=== PATIENT | male | born 1970 | race Caucasian/White ===

== ENCOUNTER 2017-12-24 12:15 | Emergency (ER) | payer BC ==
[~2017-12-24] VITALS: Ht 185.4 cm; Wt 136.0 kg
[~2017-12-24 12:15] MED LIST: AUGMENTIN875TAB PO; CEPHALEXIN500 MG OR; DOXYCYCL HYC100 MG PO; FLEXERIL PO; FLONASE NASAL50 MCG; GNP IBUPROFEN PO; LORTAB 5 OR; NO HOME MEDS; PENICILLN VK500 MG OR; ULTRAM50 M1 PO
[2017-12-24] MEDS ORDERED: LISINOPRIL20 MG PO (12:35)
[2017-12-24] MEDS ORDERED: TORADOL PO (13:10)
[2017-12-24] MEDS ORDERED: ZPAK PO (13:10)
[2017-12-24 13:17] LABS: INFLUENZA A NONE DETECTED (NONE DETECT); INFLUENZA B NONE DETECTED (NONE DETECT)
[2017-12-24 13:45] VITALS: BP 145/89
== END 2017-12-24 13:45 | disposition home or self-care (01) | DRG 203 ==
LOC: ED 12:15
PROVIDERS: Emergency Medicine
DX: J20.8 Acute bronchitis due to other specified organisms (principal); F17.210 Nicotine dependence, cigarettes, uncomplicated; I10 Essential (primary) hypertension

== ENCOUNTER 2020-02-03 | Emergency (ER) | payer BC ==
[~2020-02-03] MED LIST changes: +LISINOPRIL20 MG PO; +TORADOL PO; +ZPAK PO
[2020-02-03] MEDS ORDERED: LISINOPRIL/HYDR1 TA1 PO (15:54)
[2020-02-03] MEDS ORDERED: FOLIC ACID20 MG PO (15:54)
[2020-02-03] MEDS ORDERED: ZOFRAN4 M1 PO (15:58)
[2020-02-03 16:08] LABS: HEMATOCRIT 44.6 % (39.0-50.0); HEMOGLOBIN 14.3 g/dl (14.0-18.0); IMMATURE GRANULOCYTES 0.3 % (0.0-5.0); MEAN CELL VOLUME 86.9 fL CALC (80.0-100.0); MEAN CORPUSCULAR HGB 27.9 pG CALC (26.0-32.0); MEAN CORPUSCULAR HGB CONC 32.1 g/L CALC (32.0-36.0); NEUT# 8.24 thou/uL (1.82-7.42); RED BLOOD COUNT 5.13 mill/uL (4.70-6.10); RED CELL DISTRI WIDTH 13.8 % (11.5-15.5)
[2020-02-03 16:30] LABS: ALBUMIN 4.1 g/dL (3.2-5.0); ALKALINE PHOSPHATASE 69 u/l (38-126); ANION GAP 11 (6-22 (CALC)); BUN 16 mg/dL (9-20); BUN/CREATININE RATIO 20 (12-20 (CALC)); CARBON DIOXIDE 26 mmol/l (22-30); CHLORIDE 106 mmol/l (95-108); CREATININE 0.8 mg/dL (0.7-1.3); GFR > 60 ML/MIN (>=60 (CALC)); GFR FOR AFR.AMER. > 60 ML/MIN (>=60 (CALC)); LIPASE 97 u/l (23-300); POTASSIUM 4.4 mmol/l (3.5-5.1); SGOT/AST 29 u/l (17-59); SODIUM 138 mmol/l (137-146)
[2020-02-03 16:32] LABS: BILIRUBIN, TOTAL 0.6 mg/dL (0.0-1.4)
[2020-02-03 17:01] LABS: URINE BILIRUBIN - DIPSTICK NEGATIVE (NEGATIVE); URINE BLOOD DIPSTICK NEGATIVE (NEGATIVE); URINE COLOR YELLOW; URINE GLUCOSE - DIPSTICK NEGATIVE (NEGATIVE); URINE KETONE NEGATIVE (NEGATIVE); URINE LEUK ESTERASE NEGATIVE (NEGATIVE); URINE NITRITE - DIPSTICK NEGATIVE (Negative); URINE PROTEIN - DIPSTICK NEGATIVE (NEG-TRACE); URINE UROBILINOGEN - DIPSTICK 0.2 E.U./dL (0.2)
[2020-02-03] MEDS ORDERED: PHENERGAN25 MG/TAB PO (18:53)
[2020-02-03] MEDS ORDERED: ONDANSETRON4 MG PO (18:53)
== END 2020-02-03 19:15 | disposition home or self-care (01) | DRG 392 ==
PROVIDERS: Family Medicine
DX: R10.13 Epigastric pain (principal); I10 Essential (primary) hypertension; F17.200 Nicotine dependence, unspecified, uncomplicated
CPT/HCPCS: Q9967

== ENCOUNTER 2021-02-02 03:07 | Emergency (ER) | payer OTHER, BC ==
[~2021-02-02] VITALS: Ht 185.4 cm; Wt 147.1 kg
[~2021-02-02 03:07] MED LIST changes: +FOLIC ACID20 MG PO; +LISINOPRIL/HYDR1 TA1 PO; +ONDANSETRON4 MG PO; +PHENERGAN25 MG/TAB PO; +ZOFRAN4 M1 PO
[2021-02-02] MEDS ORDERED: NAPROXEN500 MG PO (05:07)
[2021-02-02] MEDS ORDERED: CYCLOBENZAPRINE10 MG PO (05:07)
[2021-02-02 05:25] VITALS: BP 130/60
== END 2021-02-02 05:25 | disposition home or self-care (01) | DRG 552 ==
LOC: ED 03:07
DX: M51.17 Intervertebral disc disorders with radiculopathy, lumbosacral region (principal); I10 Essential (primary) hypertension; F17.210 Nicotine dependence, cigarettes, uncomplicated; W01.0XXA Fall on same level from slipping, tripping and stumbling without subsequent striking against object, initial encounter; Y92.149 Unspecified place in prison as the place of occurrence of the external cause; Y99.0 Civilian activity done for income or pay

== ENCOUNTER 2021-02-16 | Emergency (ER) | payer BC ==
[~2021-02-16] MED LIST changes: +CYCLOBENZAPRINE10 MG PO; +NAPROXEN500 MG PO
[2021-02-16] MEDS ORDERED: FOLIC ACID1 M1 PO (20:13)
[2021-02-16] MEDS ORDERED: LISINOP/HCTZ1 TAB PO (20:13)
== END 2021-02-16 20:15 | disposition home or self-care (01) | DRG 605 ==
DX: S01.81XA Laceration without foreign body of other part of head, initial encounter (principal); I10 Essential (primary) hypertension; F17.200 Nicotine dependence, unspecified, uncomplicated; W26.8XXA Contact with other sharp object(s), not elsewhere classified, initial encounter; Y93.E8 Activity, other personal hygiene; Y92.002 Bathroom of unspecified non-institutional (private) residence as the place of occurrence of the external cause

== ENCOUNTER 2021-07-13 01:14 | Emergency (ER) | payer BC ==
[~2021-07-13] VITALS: Ht 185.4 cm; Wt 136.0 kg
[~2021-07-13 01:14] MED LIST changes: +FOLIC ACID1 M1 PO; +LISINOP/HCTZ1 TAB PO
[2021-07-13 02:44] LABS: HEMATOCRIT 44.8 % (39.0-50.0); HEMOGLOBIN 14.7 g/dl (14.0-18.0); IMMATURE GRANULOCYTES 0.2 % (0.0-5.0); MEAN CELL VOLUME 87.5 fL CALC (80.0-100.0); MEAN CORPUSCULAR HGB 28.7 pG CALC (26.0-32.0); MEAN CORPUSCULAR HGB CONC 32.8 g/dL CAL (32.0-36.0); NEUT# 6.95 thou/uL (1.82-7.42); RED BLOOD COUNT 5.12 mill/uL (4.70-6.10); RED CELL DISTRI WIDTH 13.1 % (11.5-15.5)
[2021-07-13 03:00] LABS: ALBUMIN 4.5 g/dL (3.2-5.0); ALKALINE PHOSPHATASE 73 u/l (38-126); AMYLASE 64 u/l (30-110); ANION GAP 12 (6-22 (CALC)); BILIRUBIN, TOTAL 0.5 mg/dL (0.0-1.4); BUN 17 mg/dL (9-20); BUN/CREATININE RATIO 18 (12-20 (CALC)); CARBON DIOXIDE 30 mmol/l (22-30); CHLORIDE 98 mmol/l (95-108); GFR > 60 ML/MIN (>=60 (CALC)); GFR FOR AFR.AMER. > 60 ML/MIN (>=60 (CALC)); LIPASE 87 u/l (23-300); POTASSIUM 4.4 mmol/l (3.5-5.1); SGOT/AST 31 u/l (17-59); SODIUM 136 mmol/l (137-146); TOTAL PROTEIN 7.7 g/dL (6.3-8.2)
[2021-07-13 03:12] LABS: MYOGLOBIN 64 ng/mL (0 - 121)
[2021-07-13 04:01] LABS: URINE BILIRUBIN - DIPSTICK NEGATIVE (NEGATIVE); URINE BLOOD DIPSTICK TRACE-INTACT (NEGATIVE); URINE COLOR YELLOW; URINE GLUCOSE - DIPSTICK NEGATIVE (NEGATIVE); URINE KETONE 15 mg/dL (NEGATIVE); URINE LEUK ESTERASE NEGATIVE (NEGATIVE); URINE PROTEIN - DIPSTICK NEGATIVE (NEG-TRACE); URINE SPECIFIC GRAVITY 1.025; URINE UROBILINOGEN - DIPSTICK 0.2 E.U./dL (0.2)
[2021-07-13 04:04] LABS: URINE NITRITE - DIPSTICK NEGATIVE (Negative)
[2021-07-13] MEDS ORDERED: ONDANSETRON4 MG PO (04:25)
[2021-07-13] MEDS ORDERED: PREVACID30 M3 PO (04:25)
[2021-07-13 04:48] VITALS: BP 110/71
== END 2021-07-13 04:48 | disposition home or self-care (01) | DRG 392 ==
LOC: ED 01:14
PROVIDERS: Emergency Medicine
DX: K29.70 Gastritis, unspecified, without bleeding (principal); I10 Essential (primary) hypertension; F17.200 Nicotine dependence, unspecified, uncomplicated; Z20.822 Contact with and (suspected) exposure to COVID-19
CPT/HCPCS: Q9967; S0164

== ENCOUNTER 2021-07-22 12:40 | Emergency (ER) | payer BC ==
[~2021-07-22] VITALS: Ht 185.4 cm; Wt 136.0 kg
[~2021-07-22 12:40] MED LIST changes: +PREVACID30 M3 PO
[2021-07-22 15:16] LABS: HEMATOCRIT 42.7 % (39.0-50.0); HEMOGLOBIN 14.4 g/dl (14.0-18.0); IMMATURE GRANULOCYTES 0.2 % (0.0-5.0); MEAN CELL VOLUME 85.9 fL CALC (80.0-100.0); MEAN CORPUSCULAR HGB CONC 33.7 g/dL CAL (32.0-36.0); NEUT# 2.91 thou/uL (1.82-7.42); RED BLOOD COUNT 4.97 mill/uL (4.70-6.10); RED CELL DISTRI WIDTH 13.2 % (11.5-15.5)
[2021-07-22 15:39] LABS: ALBUMIN 4.4 g/dL (3.2-5.0); ALKALINE PHOSPHATASE 87 u/l (38-126); ANION GAP 16 (6-22 (CALC)); BILIRUBIN, TOTAL 0.4 mg/dL (0.0-1.4); BUN 17 mg/dL (9-20); BUN/CREATININE RATIO 19 (12-20 (CALC)); CARBON DIOXIDE 25 mmol/l (22-30); CHLORIDE 99 mmol/l (95-108); CREATININE 0.9 mg/dL (0.7-1.3); GFR > 60 ML/MIN (>=60 (CALC)); GFR FOR AFR.AMER. > 60 ML/MIN (>=60 (CALC)); POTASSIUM 3.8 mmol/l (3.5-5.1); SGOT/AST 46 u/l (17-59); SODIUM 136 mmol/l (137-146); TOTAL PROTEIN 7.6 g/dL (6.3-8.2)
[2021-07-22 17:00] VITALS: BP 156/75
== END 2021-07-22 17:00 | disposition home or self-care (01) | DRG 179 ==
LOC: ED 12:40
PROVIDERS: Family Medicine
DX: U07.1 COVID-19 (principal); I10 Essential (primary) hypertension; F17.210 Nicotine dependence, cigarettes, uncomplicated

== ENCOUNTER 2022-06-18 15:14 | Emergency (ER) | payer BC ==
[~2022-06-18] VITALS: Ht 185.4 cm; Wt 143.2 kg
[2022-06-18 15:23] VITALS: BP 141/69
[2022-06-18 15:31] VITALS: BP 111/63
[2022-06-18 15:50] VITALS: BP 112/68
[2022-06-18 16:22] VITALS: BP 135/66
[2022-06-18 16:31] VITALS: BP 139/69
[2022-06-18] MEDS ORDERED: VOLTAREN1%GEL TOP (16:32)
[2022-06-18 16:35] VITALS: BP 139/69
== END 2022-06-18 16:37 | disposition home or self-care (01) | DRG 556 ==
LOC: ED 15:14
DX: M25.561 Pain in right knee (principal); M25.571 Pain in right ankle and joints of right foot; I10 Essential (primary) hypertension; F17.210 Nicotine dependence, cigarettes, uncomplicated

== ENCOUNTER 2023-04-12 12:28 | Observation (INO) | payer BC ==
[~2023-04-12] VITALS: Ht 185.4 cm; Wt 152.0 kg
[2023-04-12] VITALS (17 sets, daily range): BP systolic 88–137; BP diastolic 37–78
[~2023-04-12 12:28] MED LIST changes: +VOLTAREN1%GEL TOP
[2023-04-12 13:14] LABS: BASO% 0.3 % (0-3); EOS% 2.2 % (0-8); HEMATOCRIT 42.2 % (39.0-50.0); HEMOGLOBIN 13.6 g/dl (14.0-18.0); IMMATURE GRANULOCYTES 0.1 % (0.0-5.0); LYMPH% 21.9 % (15-41); MEAN CELL VOLUME 88.3 fL CALC (80.0-100.0); MEAN CORPUSCULAR HGB 28.5 pG CALC (26.0-32.0); MEAN CORPUSCULAR HGB CONC 32.2 g/dL CAL (32.0-36.0); MONO% 8.2 % (2-13); NEUT# 6.68 thou/uL (1.82-7.42); NEUT% 67.3 % (42-76); RED BLOOD COUNT 4.78 mill/uL (4.70-6.10); RED CELL DISTRI WIDTH 13.6 % (11.5-15.5)
[2023-04-12 13:22] LABS: ALKALINE PHOSPHATASE 76 u/l (38-126); ANION GAP 9 (6-22 (CALC)); BILIRUBIN, TOTAL 0.3 mg/dL (0.2-1.3); BUN 12 mg/dL (9-20); BUN/CREATININE RATIO 15 (12-20 (CALC)); CARBON DIOXIDE 26 mmol/l (22-30); CHLORIDE 105 mmol/l (95-108); CREATININE 0.8 mg/dL (0.7-1.3); GFR FOR AFR.AMER. > 60 ML/MIN (>=60 (CALC)); GFR OTHER RACES > 60 ML/MIN (>=60 (CALC)); MAGNESIUM 2.2 mg/dL (1.6-2.3); SGOT/AST 36 u/l (17-59); SODIUM 136 mmol/l (137-146)
[2023-04-12 13:32] LABS: D-DIMER 0.46 mg/L (0.19-0.60)
[2023-04-12 13:33] LABS: PROTHROMBIN TIME 9.6 SECONDS (9.0-12.5)
[2023-04-12 13:53] LABS: TSH, 3RD GENERATION 0.74 uIU/mL (0.47 - 4.68)
[2023-04-13 00:23] VITALS: BP 109/65
[2023-04-13 06:34] LABS: CHOLESTEROL HDL RATIO 5.3 (<4.4 (CALC)); MAGNESIUM 2.3 mg/dL (1.6-2.3)
[2023-04-13 06:58] VITALS: BP 125/54
[2023-04-13 08:52] LABS: URINE BILIRUBIN - DIPSTICK NEGATIVE (NEGATIVE); URINE BLOOD DIPSTICK NEGATIVE (NEGATIVE); URINE COLOR YELLOW; URINE GLUCOSE - DIPSTICK NEGATIVE (NEGATIVE); URINE KETONE NEGATIVE (NEGATIVE); URINE LEUK ESTERASE NEGATIVE (NEGATIVE); URINE NITRITE - DIPSTICK NEGATIVE (Negative); URINE PROTEIN - DIPSTICK NEGATIVE (NEG-TRACE); URINE SPECIFIC GRAVITY <=1.005; URINE UROBILINOGEN - DIPSTICK 0.2 E.U./dL (0.2)
[2023-04-13 11:21] VITALS: BP 112/72
[2023-04-13] MEDS ORDERED: ASPIRIN ADULT L81 M2 PO (12:56)
== END 2023-04-13 13:54 | disposition home or self-care (01) | DRG 313 ==
LOC: ED 12:28 → ED-I 14:55 → ED 15:13 → MS2 15:14
PROVIDERS: Family Medicine; Nurse Practitioner; ADMIT Internal Medicine; ATTEND Internal Medicine
DX: R07.89 Other chest pain (principal); I10 Essential (primary) hypertension; F17.210 Nicotine dependence, cigarettes, uncomplicated; Z82.49 Family history of ischemic heart disease and other diseases of the circulatory system
CPT/HCPCS: G0378; J1650